=== PATIENT | male | born 1975 | race Caucasian/White ===

== ENCOUNTER 2018-11-24 12:11 | Inpatient (IN) | payer BC, OTHER ==
[~2018-11-24] VITALS: Ht 175.3 cm; Wt 68.0 kg
[2018-11-24 12:00] VITALS: BP 129/76
--- NOTE | 2018-11-24 12:00 | NUR ---
Pre-admission Pre-admissions assessment performed in the intake department of [facility]. Pt is A&O and ambulatory with a steady gait. He does not appear intoxicated and answers questions appropriately. Vital signs B/P 129/76, HR 77, RR 16, O2 sat 97%, T 98.1. He reports that he has been using Heroin 1 gram per day for 6 months. Last used 0.5 grams on 11/23 at 0600. He is experiencing moderate discomfort due to opiate withdrawal symptoms. Pt is stable and admission is to continue on the [facility]. Pre-admission Pre-admissions assessment performed in the intake department of [facility]. Pt is A&O and ambulatory with a steady gait. He does not appear intoxicated and answers questions appropriately. Vital signs B/P 129/76, HR 77, RR 16, O2 sat 97%, T 98.1. He reports that he has been using Heroin 1 gram per day for 3 months. Last used 0.5 grams on 11/23 at 0600. He is experiencing moderate discomfort due to opiate withdrawal symptoms. Pt is stable and admission is to continue on the [facility].
[2018-11-24] MEDS ORDERED: ONDANSETRON 4 MG/2 ML VIAL IM PRN (12:45)
[2018-11-24] MEDS ORDERED: 5 DAY TAPER BUPRENORPHINE -SERENITY PROTOCOL SL PRN (12:45)
[2018-11-24] MEDS ORDERED: diphenhydrAMINE 50 MG CAPSULE PO PRN (12:45)
[2018-11-24] MEDS ORDERED: MIRALAX 17 GM POWD.PACK PO PRN (12:45)
[2018-11-24] MEDS ORDERED: BUPRENORPHINE HCL 2 MG TAB.SUBL SL PRN (12:45)
[2018-11-24] MEDS ORDERED: MAG HYDROX/AL HYDROX/SIMETH 30 ML LIQUID UDC PO PRN (12:45)
[2018-11-24] MEDS ORDERED: IBUPROFEN 600 MG TABLET PO PRN (12:45)
[2018-11-24] MEDS ORDERED: LOPERAMIDE HCL 2 MG CAPSULE PO PRN ×2 (12:45)
[2018-11-24] MEDS ORDERED: MAGNESIUM HYDROXIDE 30 ML LIQUID UDC PO PRN (12:45)
[2018-11-24] MEDS ORDERED: DICYCLOMINE HCL 20 MG TABLET PO PRN (12:45)
[2018-11-24] MEDS: BUPRENORPHINE HCL 2 MG TAB.SUBL SL SCH ×3 (13:00→20:33)
[2018-11-24] MEDS: LORAZEPAM 0.5 MG TABLET PO PRN ×2 (13:23→20:33)
[2018-11-24] MEDS: ONDANSETRON ODT 4 MG TAB.RAPDIS SL PRN (13:23)
[2018-11-24] MEDS: MULTIVITAMINS,THERAPEUTIC TABLET PO SCH (13:23)
[2018-11-24 13:24] LABS: *URINE HCG, QUAL NEGATIVE
[2018-11-24] MEDS: METHOCARBAMOL 750 MG TABLET PO PRN (13:24)
--- NOTE | 2018-11-24 13:38 | NUR ---
PRN Subutex, Zofran, Robaxin, and Ativan Pt is having chills, hot and cold flashes, difficulty concentrating, body aches, anxiety, restlessness, nausea, and skin crawling. COWS 20. PRN Subutex, Zofran, Robaxin, and Ativan administered.
--- NOTE | 2018-11-24 13:45 | NUR ---
ADMISSION Pt is a 42 yo male admitted to [facility] at 1230 on 11/24/18 for medically supervised Opiate withdrawal. He is A&O and ambulatory with a steady gait. Body check performed by the STRAW HAT PLUNGER OPERATOR and the skin check performed by the nurse. He reports allergies to Sulfa and Levofloxican, he is full code status, and on a regular diet at home. Vital signs in intake are B/P 129/76, HR 77, RR 16, O2 sat 97%, T 98.1. He is 58 and weighs 150lb. Mild wheezing noted in all lung artis, respirations even and unlabored, brisk capillary refill, bowel sounds present, skin is moist and intact. He has a productive cough with clear/white thin sputum. He reports history of depression and anxiety. He denies any other medical history. Last BM was yesterday. He reports constipation when using heroin. Pt was in [facility] twice over the past 3 days for the treatment of a respiratory infection and he received IV abx. Pt brought in a Combivent inhaler which was prescribed to him by his primary care physician 1 week ago. Use History 1. Heroin 1 gram per day for the past 3 months. Last used 0.5grams on 11/23/18 at 0600. He began using heroin for the first time 6 months ago. He was up to 1.5 grams per day but tapered down to 1 gram per day for the past 3 months. Treatment History 1. [facility] in 1992 for 30 days. 2. [facility] 1992 for 30 days. Pt does have a h/o alcohol use disorder and opioid use. He explains that he had a wrestling injury in college and started using Vicodin. He then switched to Oxycodone. He states that this led to a 20 year history of opioid use. He used Suboxone to detox from Oxycodone. He found it difficult to manage some of the Suboxone withdrawal symptoms. He used Kratom for some time but stopped because he was unable to eat when taking it. 6 months ago a friend offered him a hit of heroin and he has been using ever since. He states that he has suffered trauma while growing up and that most likely contributed to his continued substance use. His Mother has a h/o ETOH abuse. The patient is a former smoker and currently uses an e-cigarette. His longest period of sobriety was 3 years at the age of 29. The patient lives at home with his girlfriend and dog. His family and girlfriend are supportive. He is currently experiencing s/s of Opiate withdrawal. He has anxiety, chills, hot and cold flashes, difficulty concentrating, body aches, nausea, skin crawling, and restlessness. Admission COWS score is 20. His primary care is Dr. Betancourt at [facility]. Dr. Barrett on the unit and aware of pts admission. Pt educated regarding plan of care and use of the call light. He verbalized understanding. Safety measures in place. Addendum: 11/25/18 at 0801 by IVANNA CASTELLANOS RN Pt reports that while being treated for the respiratory tract infection at [facility] on 11/23/18, he was administered Ativan 1mg.
[2018-11-24] MEDS ORDERED: IPRA4AER IH (15:05)
[2018-11-24 16:30] VITALS: BP 100/65
[2018-11-24 18:06] LABS: *AMPHETAMINE, URINE NEGATIVE (NEGATIVE); *BARBITURATE, URINE NEGATIVE (NEGATIVE); *CANNABINOID, URINE POSITIVE (NEGATIVE); *COCCAINE, URINE NEGATIVE (NEGATIVE); *OPIATE, URINE POSITIVE (NEGATIVE); *PHENCYCLIDINE SCREEN,URINE NEGATIVE (NEGATIVE)
--- NOTE | 2018-11-24 19:25 | NUR ---
END OF SHIFT Report provided to warehouse supervisor 3rd shift nurse. Pt is lying in bed resting. He is a 42 yo male admitted to [facility] today for opiate withdrawal. He is A&O and ambulatory. Allergic to sulfa and levofloxican, full code, regular diet. He started a 5 day Subutex taper today at 1700. One PRN Subutex administered on admission. He also received PRN Ativan, Robaxin, and Zofran. All were effective. Last COWS was 13. He drank 360mL and was able to eat 50% of dinner. Safety measures in place. Addendum: 11/24/18 at 1927 by IVANNA CASTELLANOS RN Pt was recently treated at [facility] for a respiratory tract infection.
--- NOTE | 2018-11-24 19:42 | NUR ---
START OF SHIFT NOTE Rcvd report from outgoing nurse. Pt is a 42 y/o male A/O to person, place, time, and purpose. Pt was admitted for medically supervised withdrawal from Opiates. Pt is on day 1 of a 5 day Subutex taper. Pt has been presenting w/ chills, sweats, body aches, nausea w/ no emesis, tremors, anxiety, depressed and withdrawn mood, and a blunt affect. Pt rcvd PRN Subutex, Robaxin, Ativan, and Zofran and were all noted effective by outgoing nurse. Last COWS 13 @ 1600. Call light is within reach. Pt will continue to be monitored and needs met.
[2018-11-24 20:00] VITALS: BP 117/75
--- NOTE | 2018-11-24 20:33 | NUR ---
PRN ATIVAN AND SEROQUEL ADMINISTRATION Ativan 2mg for s/s of withdrawal and Seroquel 100mg for sleep were given. Will reassess pt in 1 hr.
[2018-11-24 20:42] LABS: BASOPHILS % (AUTO) 0.4 % (0.0-2.0); HEMATOCRIT 35.8 % (36.7-47.1); HEMOGLOBIN 12.7 g/dL (12.5-16.3); LYMPHOCYTES # (AUTO) 0.4 K/uL (20.0-40.0); LYMPHOCYTES % (AUTO) 26.5 % (20.5-51.5); MEAN CORPUSCULAR HEMOGLOBIN 33.9 uug (23.8-33.4); MEAN CORPUSCULAR HGB CONC 36 g/dL (32.5-36.3); MEAN CORPUSCULAR VOLUME 95.2 fL (73.0-96.2); MONOCYTES # (AUTO) 0.1 K/uL (2.0-10.0); MONOCYTES % (AUTO) 4.2 % (0.0-11.0); NEUTROPHILS # (AUTO) 1.1 K/uL (1.8-8.9); NEUTROPHILS % (AUTO) 68.9 % (38.5-71.5); PLATELET COUNT (AUTO) 69 K/uL (152-348); RED BLOOD CELL COUNT(AUTO) 3.76 MIL/uL (4.06-5.63)
[2018-11-24 20:49] LABS: WHITE BLOOD COUNT (AUTO) 1.6 K/uL (3.6-10.2)
[2018-11-24 20:58] LABS: ALANINE AMINOTRANSFERASE 41 U/L (16-63); ALKALINE PHOSPHATASE 74 U/L (50-136); ASPARTATE AMINOTRANSFERASE 35 U/L (15-37); BILIRUBIN,TOTAL 0.5 mg/dL (0.2-1.0); CARBON DIOXIDE 29 mmol/L (21-32); CHLORIDE 97 mmol/L (98-107); GLUCOSE 128 mg/dL (74-106); MAGNESIUM 2.1 mg/dL (1.8-2.4); POTASSIUM 3.3 mmol/L (3.5-5.1); TOTAL PROTEIN, SERUM 7.4 g/dL (6.4-8.2); UREA NITROGEN, BLOOD 13 mg/dL (7-18)
[2018-11-24] MEDS ORDERED: QUETIAPINE FUMARATE 100 MG TABLET PO ONE (21:00)
[2018-11-24 21:06] LABS: BAND % (MANUAL) 16 % (0-10); LYMPHOCYTES % (MANUAL) 24 % (20-40); MONOCYTES % (MANUAL) 4 % (2-10); NEUTROPHILS % (MANUAL) 56 % (42-75)
[2018-11-24 21:07] LABS: THYROID STIMULATING HORMONE 0.466 mIU/mL (0.358-3.740)
[2018-11-24 21:09] LABS: ETHANOL < 3 MG/DL (0-0)
--- NOTE | 2018-11-24 21:33 | NUR ---
PRN ATIVAN AND SEROQUEL REASSESSMENT Pt is in bed w/ his eyes closed. Pt's respirations are unlabored and even.
--- NOTE | 2018-11-25 | NUR ---
COWS DEFERRED AND V/S REFUSED Pt is in bed w/ his eyes closed. Pt's respirations are unlabored and even.
[2018-11-25] MEDS ORDERED: LORAZEPAM 1 MG TABLET PO PRN (03:41)
[2018-11-25] MEDS: METHOCARBAMOL 750 MG TABLET PO PRN ×2 (03:48→16:00)
--- NOTE | 2018-11-25 03:48 | NUR ---
PRN ATIVAN, MOTRIN, AND ROBAXIN ADMINISTRATION Ativan 2mg for s/s of withdrawal (COWS 13), Motrin 600mg for headache, and Robaxin 750mg for muscles aches. Will reassess pt in 1 hr.
--- NOTE | 2018-11-25 07:08 | NUR ---
END OF SHIFT NOTE Endorsed pt to oncoming nurse. Pt is a 42 y/o male A/O to person, place, time, and purpose. Pt was admitted for medically supervised withdrawal from Opiates. Pt completed day 1 of a 5 day Subutex taper. Pt continued presenting w/ chills, sweats, body aches, nausea w/ no emesis, tremors, anxiety, depressed and withdrawn mood, and a blunt affect. Pt denies any S/I or H/I. PRN Ativan x2, Seroquel, Motrin, and Robaxin were given and all noted effective. Pts fluid intake was 1300ml and he slept for 10hrs. Last COWS 13 @ 0400. Call light is within reach.
[2018-11-25 08:00] VITALS: BP 95/65
[2018-11-25] MEDS: MULTIVITAMINS,THERAPEUTIC TABLET PO SCH (08:07)
[2018-11-25] MEDS: BUPRENORPHINE HCL 2 MG TAB.SUBL SL SCH ×3 (08:08→21:02)
--- NOTE | 2018-11-25 08:15 | NUR ---
START OF SHIFT: Received Pt A/O X 4 laying in bed. He reports sweats,fatigue,restlessness and generalized malaise. COWS 9. Subutex taper in progress to manage s/s of w/d. He also reports a cough and chest congestion. Respirations even and unlabored. He reports he would like to sleep after medication administration. Offered support. Encouraged increased fluids and rest today. PPD refused. Will continue to monitor and manage s/s of w/d.
[2018-11-25] MEDS ORDERED: TUBERCULIN,PURIF.PROT.DERIV. 5 TU/0.1 ML TEST ID ONE (09:00)
[2018-11-25 10:34] LABS: POTASSIUM 3.6 mmol/L (3.5-5.1)
[2018-11-25 10:42] LABS: HEMOGLOBIN 12.3 g/dL (12.5-16.3); LYMPHOCYTES # (AUTO) 0.7 K/uL (20.0-40.0); MEAN CORPUSCULAR VOLUME 92.8 fL (73.0-96.2); MONOCYTES # (AUTO) 0.1 K/uL (2.0-10.0); NEUTROPHILS # (AUTO) 1.1 K/uL (1.8-8.9)
[2018-11-25 10:43] LABS: BASOPHILS % (AUTO) 0.1 % (0.0-2.0); EOSINOPHILS % (AUTO) 0.4 % (0.0-7.0); HEMATOCRIT 34.7 % (36.7-47.1); LYMPHOCYTES % (AUTO) 36.9 % (20.5-51.5); MEAN CORPUSCULAR HEMOGLOBIN 32.7 uug (23.8-33.4); MEAN CORPUSCULAR HGB CONC 35 g/dL (32.5-36.3); MONOCYTES % (AUTO) 3.8 % (0.0-11.0); NEUTROPHILS % (AUTO) 58.8 % (38.5-71.5); PLATELET COUNT (AUTO) 65 K/uL (152-348); RED BLOOD CELL COUNT(AUTO) 3.74 MIL/uL (4.06-5.63)
[2018-11-25 10:52] LABS: WHITE BLOOD COUNT (AUTO) 1.9 K/uL (3.6-10.2)
--- NOTE | 2018-11-25 10:58 | NUR ---
Critical; lab reported from [facility]. WBC 1.9 MD made aware. No new orders at this time. CXR done and Pt tolerated well.
[2018-11-25 11:41] LABS: BAND % (MANUAL) 6 % (0-10); LYMPHOCYTES % (MANUAL) 34 % (20-40); MONOCYTES % (MANUAL) 2 % (2-10); NEUTROPHILS % (MANUAL) 58 % (42-75)
[2018-11-25 12:00] VITALS: BP 103/73
[2018-11-25] MEDS: NICOTINE POLACRILEX 4 MG GUM-PK OF TEN BC PRN (14:22)
--- NOTE | 2018-11-25 15:29 | NUR ---
Therapist prompted client to attend group therapy.
[2018-11-25 16:00] VITALS: BP 109/74
[2018-11-25] MEDS: ACETAMINOPHEN 325 MG TABLET PO PRN (16:00)
--- NOTE | 2018-11-25 16:00 | NUR ---
PRN Tylenol and PRN Robaxin given to manage back pain 5/10 and body aches.Will monitor effectiveness. Influenza specimen and sputum collected and sent to lab.
[2018-11-25] MEDS: AZITHROMYCIN 250 MG TABLET PO SCH (16:23)
--- NOTE | 2018-11-25 18:10 | NUR ---
PRN Tylenol and Robaxin effective. He reports aches lessened and pain now 2/10.
--- NOTE | 2018-11-25 18:41 | NUR ---
END OF SHIFT: Pt is on a Subutex taper to manage s/s of w/d which include body aches,anxiety,restlessness ,and sweats. Last COWS 9. He continues with a productive cough . CXR done. ID MD assessed Pt and new orders for Zithromax and Tamiflu. Sputum collected for culture and Influenza swab collected and both sent to lab. Blood cultures also ordered.Pulmonary MD also assessed Pt. He rested on and off most of day. He was compliant with increased fluids. Will pass shift report to oncoming night nurse.
--- NOTE | 2018-11-25 19:30 | NUR ---
START OF SHIFT Received 42 year old male patient admitted on 11/24/18 for Heroin withdrawal. Pt is alert and oriented x4. Pt noted with anxiety, complains of throbbing head and back pain. Pt started on a 5 day Subutex taper on 11/24/18 and tolerating well. Per endorsement, pt had CXR and resulted with slightly asymmetric patchy air space densities. Pt started on antibiotics. Sputum, blood and influenza culture obtained. Results pending. Pt received PRN Tylenol and Robaxin. Pts last CIWA:9 at 1600. Breathing even and unlabored, safety measures in place. Will continue to monitor.
[2018-11-25 20:00] VITALS: BP 104/63
[2018-11-25] MEDS: OSELTAMIVIR PHOSPHATE 75 MG CAPSULE PO SCH (21:02)
[2018-11-25] MEDS: COMBIVENT RESPIMAT INH PRN (21:26)
[2018-11-25] MEDS: ONDANSETRON ODT 4 MG TAB.RAPDIS SL PRN (21:26)
--- NOTE | 2018-11-25 21:26 | NUR ---
PRN ZOFRAN/INHALER Pt complains of nausea and shortness of breath. Pt requested to use his own inhaler. PRN Zofran SL and Pt's inhaler administered as ordered. Will monitor effectiveness.
[2018-11-25] MEDS ORDERED: QUETIAPINE FUMARATE 100 MG TABLET PO ONE (22:00)
--- NOTE | 2018-11-25 22:00 | NUR ---
PRN ZOFRAN/INHALER REASSESSMENT PRN medications effective. Pt reports decrease in nausea and shortness of breath. Will continue to monitor.
--- NOTE | 2018-11-25 22:06 | NUR ---
ONE TIME SEROQUEL Pt complains of difficulty falling asleep. PRN Benadryl offered, pt refused. One time Seroquel administered as ordered. Safety measures in place. Will monitor.
--- NOTE | 2018-11-25 23:06 | NUR ---
PRN SEROQUEL REASSESSMENT PRN medication effective. Pt lying in bed with eyes closed noted to be asleep. Will continue to monitor.
[2018-11-26 04:08] LABS: HEPATITIS B SURFACE AG Negative (Negative)
[2018-11-26 06:30] VITALS: BP 106/63
[2018-11-26] MEDS: ACETAMINOPHEN 325 MG TABLET PO PRN ×2 (06:31→14:31)
[2018-11-26] MEDS: CLONIDINE HCL 0.1 MG TABLET PO PRN (06:31)
[2018-11-26] MEDS: METHOCARBAMOL 750 MG TABLET PO PRN (06:31)
--- NOTE | 2018-11-26 06:31 | NUR ---
PRN ROBAXIN, CLONIDINE, TYLENOL Pt complains of body aches, headache 7/10, sweats and chills. PRN Robaxin, Clonidine and Tylenol administered as ordered. Safety measures in place. Will endorse to AM shift to reassess.
[2018-11-26] MEDS: IPRATROPIUM BROMIDE 0.5 MG/2.5 ML NEBU NEB PRN (07:17)
[2018-11-26] MEDS: ALBUTEROL SULFATE 2.5 MG/3 ML NEBU NEB PRN (07:17)
--- NOTE | 2018-11-26 07:21 | NUR ---
END OF SHIFT Pt is a 42 year old male patient admitted on 11/24/18 for Heroin withdrawal. He remains alert and oriented x4. He was noted with anxiety, and had complaints of poor appetite, headache, back pain, cough and shortness of breath during the shift. He continues on a 5 day Subutex taper and tolerating well. He received a one time order of Seroquel, PRN Zofran and inhaler. At 0630 pt complained of chills, sweats, body aches, shortness of breath and headache. PRN Robaxin, Clonidine, Tylenol and Breathing treatment administered. Endorsed to AM shift to reassess. He slept a total of 7hrs, Intake: 1000mL Void:x1, BM:0 COWS: 9 at 1999. Breathing even and unlabored, safety measures in place. Endorsed to AM shift.
[2018-11-26 07:46] LABS: BASOPHILS % (AUTO) 0.5 % (0.0-2.0); LYMPHOCYTES % (AUTO) 48.6 % (20.5-51.5); MEAN CORPUSCULAR HEMOGLOBIN 33.1 uug (23.8-33.4); MEAN CORPUSCULAR HGB CONC 35 g/dL (32.5-36.3); MEAN CORPUSCULAR VOLUME 93.5 fL (73.0-96.2); MONOCYTES # (AUTO) 0.1 K/uL (2.0-10.0); MONOCYTES % (AUTO) 2.8 % (0.0-11.0); NEUTROPHILS % (AUTO) 47.1 % (38.5-71.5); PLATELET COUNT (AUTO) 71 K/uL (152-348); RED BLOOD CELL COUNT(AUTO) 3.63 MIL/uL (4.06-5.63); WHITE BLOOD COUNT (AUTO) 2.1 K/uL (3.6-10.2)
[2018-11-26 08:00] VITALS: BP 102/60
--- NOTE | 2018-11-26 08:05 | NUR ---
START OF SHIFT: Received Pt A/O X 4 laying in bed. He reports sweats,restlessness,anxiety and fatigue. He continues with SOB on exertion and productive cough. O2 sat 89% this morning. Nebulizer treatment performed by RT this morning and he tolerated well. ABT therapy in progress per . COWS 9. Subutex taper in progress to manage s/s of w/d. Respirations even and unlabored. Encouraged him to get out of bed to promote respiratory health. Offered support. Encouraged increased fluids.Will continue to monitor and manage s/s of w/d.
[2018-11-26] MEDS: MULTIVITAMINS,THERAPEUTIC TABLET PO SCH (08:20)
[2018-11-26] MEDS: OSELTAMIVIR PHOSPHATE 75 MG CAPSULE PO SCH ×2 (08:20→20:10)
[2018-11-26] MEDS ORDERED: BUPRENORPHINE HCL 2 MG TAB.SUBL SL SCH (09:00)
[2018-11-26 09:57] LABS: BAND % (MANUAL) 2 % (0-10); LYMPHOCYTES % (MANUAL) 46 % (20-40); MONOCYTES % (MANUAL) 4 % (2-10); NEUTROPHILS % (MANUAL) 47 % (42-75); REACTIVE LYMPHOCYTES 1 % (0-0)
--- NOTE | 2018-11-26 10:14 | NUR ---
Therapist prompted client to attend group therapy.
[2018-11-26 12:00] VITALS: BP 103/65
[2018-11-26] MEDS: NICOTINE POLACRILEX 4 MG GUM-PK OF TEN BC PRN ×2 (12:08→16:47)
[2018-11-26] MEDS: BUPRENORPHINE HCL 2 MG TAB.SUBL SL SCH ×2 (14:31→20:10)
[2018-11-26] MEDS: AZITHROMYCIN 250 MG TABLET PO SCH (14:31)
--- NOTE | 2018-11-26 14:35 | NUR ---
Pt reports back pain 5/10. PRN Tylenol given to manage pain. Will monitor effectiveness.
--- NOTE | 2018-11-26 15:35 | NUR ---
Pt states the Tylenol was effective aeb pain 12/21
[2018-11-26 16:00] VITALS: BP 112/81
--- NOTE | 2018-11-26 18:28 | NUR ---
END OF SHIFT: Pt is on a Subutex taper to manage s/s of w/d which include body aches,anxiety and restlessness. Last COWS 9. He continues with a productive cough . ID DRUM DRIER OPERATOR assessed Pt and ordered a respiratory viral panel. Will endorse to table games shift manager nurse to collect sputum. Pulmonary MD also assessed Pt.and ordered a BNP. He attended some groups and took a shower. PRN Tylenol given for back pain 5/10 on scale. He was compliant with increased fluids. Will pass shift report to oncoming night nurse
--- NOTE | 2018-11-26 19:00 | NUR ---
Start of Shift Received 42 year old male patient admitted to [facility] for medically supervised withdrawal from Opiates. Pt currently on day 3 of a 5 day Subutex taper, which he is tolerating well. Pt received PRN Tylenol day shift. Last COWS 9 @1600. Pt in bed, awake, alert, and oriented. Pt is anxious, agitated, mild tremors, and c/o feeling hot, chills, and general aches. Pt continues to have a productive cough. Pt is aware that a specimen needs to be collected and sent to lab, will call. Bed low, side rails up x 2, and call vital in reach. Will continue to monitor.
[2018-11-26 20:00] VITALS: BP 121/92
--- NOTE | 2018-11-26 20:00 | NUR ---
COWS 15 Sputum sent to lab Pt is anxious, agitated, increased tremors, and c/o feeling hot, chills, and general aches.
[2018-11-26] MEDS ORDERED: QUETIAPINE FUMARATE 100 MG TABLET PO ONE (21:15)
[2018-11-26] MEDS: ONDANSETRON ODT 4 MG TAB.RAPDIS SL PRN (22:36)
--- NOTE | 2018-11-26 22:36 | NUR ---
PRN Zofran//Baclofen/Seroquel 1 x order Pt c/o nausea, and general aches/pain /10, and requested Seroquel for sleep. Medications given per order. Will monitor effect.
[2018-11-26] MEDS: BACLOFEN 20 MG TABLET PO PRN (22:37)
--- NOTE | 2018-11-26 23:36 | NUR ---
Reassess PRN Zofran/Baclofen/Seroquel Pt in bed resting with eyes closed. Respirations are even and unlabored. Bed low, side rails up x 2, and call vital in reach. Will continue to monitor.
--- NOTE | 2018-11-27 | NUR ---
COWS deferred/ Vitals refused. Pt resting with eyes closed. Respirations are even and unlabored. Bed low, side rails up x 2, and call vital in reach. Will continue to monitor.
--- NOTE | 2018-11-27 06:40 | NUR ---
End of Shift Endorsing 42 year old male patient admitted to [facility] for medically supervised withdrawal from Opiates. Pt currently on day 4 of a 5 day Subutex taper, which he is tolerating well. Pt received PRN Zofran, Baclofen, and Seroquel on retail shift supervisor. Last COWS 15 @1999. Pt in bed resting with eyes closed. Respirations are even and unlabored. Bed low, side rails up x 2, and call vital in reach. PO intake 1500 ml, voided x 3 BM x 0, and slept 8 hours.
--- NOTE | 2018-11-27 07:30 | NUR ---
START OF SHIFT Pt 42 y/o male admitted for opiate withdrawal. Pt received in room awake watching television. Pt alert and oriented to name, place, and time. Perrla. Skin warm and moist to touch. Respirations even and unlabored. Appears disheveled. Clothes and empty drink bottles scattered throughout the room. Encouraged to maintain hygiene. Anxious and restless. Fidgety. Irritable. Pressured speech. Bilateral hand tremors noted. Complaints of generalized discomfort. It was reported that pt slept for 8 hours last night. Pt is on a 5 day subutex tapers and is on day 4. Bed on lowest position with side rails x2 up for safety. Call light within reach.
[2018-11-27] MEDS: COMBIVENT RESPIMAT INH PRN (07:59)
[2018-11-27 08:00] VITALS: BP 119/76
[2018-11-27] MEDS: OSELTAMIVIR PHOSPHATE 75 MG CAPSULE PO SCH ×2 (08:26→20:43)
[2018-11-27] MEDS: BUPRENORPHINE HCL 2 MG TAB.SUBL SL SCH ×3 (08:26→20:41)
[2018-11-27] MEDS: MULTIVITAMINS,THERAPEUTIC TABLET PO SCH (08:26)
[2018-11-27] MEDS: NICOTINE POLACRILEX 4 MG GUM-PK OF TEN BC PRN ×2 (08:41→22:31)
[2018-11-27 09:00] LABS: POTASSIUM 3.6 mmol/L (3.5-5.1)
[2018-11-27 09:04] LABS: BASOPHILS % (AUTO) 0.7 % (0.0-2.0); EOSINOPHILS % (AUTO) 1.9 % (0.0-7.0); HEMATOCRIT 34.2 % (36.7-47.1); HEMOGLOBIN 12.3 g/dL (12.5-16.3); LYMPHOCYTES # (AUTO) 1.1 K/uL (20.0-40.0); LYMPHOCYTES % (AUTO) 48.4 % (20.5-51.5); MEAN CORPUSCULAR HEMOGLOBIN 33.2 uug (23.8-33.4); MEAN CORPUSCULAR HGB CONC 36 g/dL (32.5-36.3); MEAN CORPUSCULAR VOLUME 92.4 fL (73.0-96.2); MONOCYTES # (AUTO) 0.1 K/uL (2.0-10.0); MONOCYTES % (AUTO) 2.2 % (0.0-11.0); NEUTROPHILS # (AUTO) 1.1 K/uL (1.8-8.9); NEUTROPHILS % (AUTO) 46.8 % (38.5-71.5); PLATELET COUNT (AUTO) 84 K/uL (152-348); WHITE BLOOD COUNT (AUTO) 2.3 K/uL (3.6-10.2)
[2018-11-27 09:50] LABS: LYMPHOCYTES % (MANUAL) 49 % (20-40); MONOCYTES % (MANUAL) 1 % (2-10); NEUTROPHILS % (MANUAL) 50 % (42-75)
[2018-11-27 10:08] LABS: CRYPTOCOCCUS AB, SERUM Negative (Negative)
[2018-11-27] MEDS ORDERED: methylPREDNISolone SOD SUCC 125 MG/2 ML VIAL IV SCH (10:45)
[2018-11-27] MEDS: ALBUTEROL SULFATE 2.5 MG/3 ML NEBU NEB SCH ×3 (11:30→19:02)
[2018-11-27] MEDS: IPRATROPIUM BROMIDE 0.5 MG/2.5 ML NEBU NEB SCH ×3 (11:30→19:02)
[2018-11-27 12:00] VITALS: BP 120/76
--- NOTE | 2018-11-27 12:45 | NUR ---
IV Access: IV access obtained to patient's right forearm. Patient was informed prior to procedure and verbalized good understanding. Utilized 23G to patient's right forearm via aseptic technique with x 1 attempt. Good blood return noted. Patient tolerated procedure well. Flushed adequately per unit protocol. Tourniquet released. Will continue to monitor.
[2018-11-27] MEDS: IPRATROPIUM BROMIDE 0.5 MG/2.5 ML NEBU NEB PRN (12:49)
[2018-11-27] MEDS: ALBUTEROL SULFATE 2.5 MG/3 ML NEBU NEB PRN (12:50)
[2018-11-27] MEDS: methylPREDNISolone SOD SUCC 125 MG/2 ML VIAL IV SCH ×2 (13:43→22:00)
[2018-11-27] MEDS: AZITHROMYCIN 250 MG TABLET PO SCH (14:02)
[2018-11-27 16:00] VITALS: BP 118/74
[2018-11-27] MEDS: ONDANSETRON ODT 4 MG TAB.RAPDIS SL PRN (16:42)
--- NOTE | 2018-11-27 16:42 | NUR ---
Zofran 4 mg SL/Mylanta 30 cc PO given: Patient complains of upset stomach and nausea. Able to tolerate oral intake. Medicated patient with Zofran 4 mg and Mylanta 30 cc PO given as ordered. Will monitor for effectiveness.
--- NOTE | 2018-11-27 17:42 | NUR ---
PRN HAIR AUGUSTE EVAL Pt states medication effective. Pt denies any nausea.
--- NOTE | 2018-11-27 19:35 | NUR ---
START OF SHIFT Received patient awake, alert, and oriented x4 sitting up in bed watching TV. Patient is a 42 year old male admitted for medically supervised detox from opiates with secondary diagnoses of anxiety, depression, and a respiratory tract infection. Per endorsement, patient is on the 4th day of his 5 day Subutex taper and was given PRN meds Maalox and Zofran. He requires supplemental O2 on occasion for SOB and difficulty keeping his SpO2 up. Patient is receiving breathing treatments and is receiving IV push Solumedrol. Upon assessment, patient stated he was experiencing lower back pain at a 5 out of 10, tremors, and diaphoresis. He also reported that he was coughing and it was causing him nausea or gagging. Patient requests pain medication with his night time medications. Last COWS score is 12. HOB and bilateral side rails raised. All safety measures in place. Call light is functional and within reach. Will continue to monitor.
--- NOTE | 2018-11-27 19:38 | NUR ---
END OF SHIFT Pt 42 y/o male admitted for opiate withdrawal. Pt alert and oriented to name, place, and time. Perrla. Skin warm and moist to touch. Respirations even and unlabored. Appears disheveled. Clothes and empty drink bottles scattered throughout the room. Encouraged to maintain hygiene. Anxious and restless. Bilateral hand tremors noted. Pressured speech. Irritable. Intermittent perspiration. Generalized body aches. Attended group activity today. Last cows=12@1600. Pt is on a 5 day Subutex taper and is on day 4. Bed on lowest position with side rails x2 up for safety. Call light within reach.
[2018-11-27 20:00] VITALS: BP 151/73
[2018-11-27] MEDS: QUETIAPINE FUMARATE 25 MG TABLET PO SCH (20:40)
[2018-11-27] MEDS: QUETIAPINE FUMARATE 100 MG TABLET PO SCH (20:41)
[2018-11-27] MEDS: ACETAMINOPHEN 325 MG TABLET PO PRN (20:42)
--- NOTE | 2018-11-27 20:42 | NUR ---
PRN TYLENOL ADMINISTRATION Patient reports a 5 out of 10 dull aching pain to his lower back. PRN Tylenol 650 mg given PO per MD orders and patient request. Will continue to monitor and reassess for effectiveness.
[2018-11-27] MEDS ORDERED: QUETIAPINE FUMARATE 100 MG TABLET PO SCH (21:00)
--- NOTE | 2018-11-27 21:42 | NUR ---
PRN TYLENOL REASSESSMENT Patient reports not having sufficient relief from lower back pain and pain is still at a 5 out of 10. Will continue to monitor.
--- NOTE | 2018-11-27 22:31 | NUR ---
PRN NICOTINE GUM GIVEN Patient reported having cravings and requested a PRN. Nicotine gum 4 mg given per MD orders. Will continue to monitor and reassess.
[2018-11-27] MEDS: BACLOFEN 20 MG TABLET PO PRN (23:03)
--- NOTE | 2018-11-27 23:03 | NUR ---
PRN BACLOFEN ADMINISTRATION Patient reported having muscle spasms to lower back. PRN Baclofen 20 mg given per MD orders. Will continue to monitor and reassess for effectiveness.
--- NOTE | 2018-11-27 23:31 | NUR ---
PRN NICOTINE GUM REASSESSMENT Patient reports having relief from cravings. PRN Nicotine noted to be effective. Will continue to monitor.
--- NOTE | 2018-11-28 | NUR ---
VITAL SIGNS REFUSED Patient is noted lying in bed with eyes closed and even, unlabored respirations. Vital signs refused at this time. HOB flat and bilateral side rails raised for safety. Call light is functional and within reach. Will continue to monitor.
--- NOTE | 2018-11-28 00:03 | NUR ---
PRN BACLOFEN REASSESSMENT Patient is noted lying in bed with eyes closed and respirations even and unlabored. No reports of negative symptoms or pain reported. PRN Baclofen noted to be effective. Will continue to monitor.
[2018-11-28] MEDS: CLONIDINE HCL 0.1 MG TABLET PO PRN ×3 (03:22→22:00)
--- NOTE | 2018-11-28 03:22 | NUR ---
PRN CLONIDINE ADMINISTRATION Patient reported symptoms of moderate to severe anxiety, tremors and diaphoresis. Clonidine 0.1 mg administered per MD orders. Will continue to monitor and reassess for effectiveness.
--- NOTE | 2018-11-28 04:22 | NUR ---
PRN CLONIDINE REASSESSMENT Patient reports moderate, but not complete relief from symptoms of anxiety, tremors, and diaphoresis. PRN Clonidine noted to be effective. Will continue to monitor.
[2018-11-28] MEDS: methylPREDNISolone SOD SUCC 125 MG/2 ML VIAL IV SCH (06:18)
--- NOTE | 2018-11-28 07:30 | NUR ---
START OF SHIFT Pt 42 y/o male admitted for opiate withdrawal. Pt received in room awake watching in room. Peripheral IV on left forearm 22g saline locked in place and patent with no redness noted. Pt alert and oriented to name, place, and time. Perrla. Skin warm and moist to touch. Respirations even and unlabored. Appears disheveled. Hair uncombed. Clothes scattered throughout the room. Encouraged to maintain hygiene. Anxious and restless. Pressured speech. Intermittent perspiration with perspiration noted on forehead. Bilateral hand tremors noted. Complaints of generalized discomfort. It was reported that pt slept for 5 hours last night. Pt is on a 5 day subutex taper and is on day 5. Bed on lowest position with side rails x2 up for safety. Call light within reach.
--- NOTE | 2018-11-28 07:33 | NUR ---
END OF SHIFT Patient is a 42 year old male admitted for medically supervised detox from opiates with secondary diagnoses of anxiety, depression, and a respiratory tract infection. During the shift, the patient was noted with anxiety, tremors, diaphoresis, cravings for cigarettes, agitation, and lower back pain and spasms. PRN medications Tylenol, nicotine gum, baclofen, and Clonidine were given per MD orders. Patient stated he has been sweating more than usual during his sleep and required a complete linen and clothing change. Patient required a change of IV site due to burning and pain upon flushing NS during scheduled medication administration. New IV site is now in his left forearm. Last COWS score is 11. Patient slept for about 4.5 hours during the night. HOB flat and bilateral side rails raised. Call light is functional and within reach. All safety measures in place. Seizure and fall precautions maintained. Endorsed to oncoming AM nurse.
[2018-11-28] MEDS: ALBUTEROL SULFATE 2.5 MG/3 ML NEBU NEB SCH ×4 (07:35→19:38)
[2018-11-28] MEDS: IPRATROPIUM BROMIDE 0.5 MG/2.5 ML NEBU NEB SCH ×4 (07:35→19:38)
[2018-11-28 08:00] VITALS: BP 115/74
[2018-11-28 08:02] LABS: BASOPHILS % (AUTO) 0.3 % (0.0-2.0); EOSINOPHILS % (AUTO) 0.1 % (0.0-7.0); HEMATOCRIT 34.4 % (36.7-47.1); HEMOGLOBIN 12.4 g/dL (12.5-16.3); LYMPHOCYTES # (AUTO) 0.6 K/uL (20.0-40.0); LYMPHOCYTES % (AUTO) 26.8 % (20.5-51.5); MEAN CORPUSCULAR HEMOGLOBIN 33.4 uug (23.8-33.4); MEAN CORPUSCULAR HGB CONC 36 g/dL (32.5-36.3); MEAN CORPUSCULAR VOLUME 92.5 fL (73.0-96.2); MONOCYTES # (AUTO) 0.1 K/uL (2.0-10.0); MONOCYTES % (AUTO) 4.3 % (0.0-11.0); NEUTROPHILS # (AUTO) 1.4 K/uL (1.8-8.9); NEUTROPHILS % (AUTO) 68.5 % (38.5-71.5); PLATELET COUNT (AUTO) 106 K/uL (152-348); RED BLOOD CELL COUNT(AUTO) 3.72 MIL/uL (4.06-5.63); WHITE BLOOD COUNT (AUTO) 2.1 K/uL (3.6-10.2)
[2018-11-28 08:16] LABS: CREATININE 0.9 mg/dL (0.6-1.3); POTASSIUM 4.9 mmol/L (3.5-5.1)
[2018-11-28] MEDS: OSELTAMIVIR PHOSPHATE 75 MG CAPSULE PO SCH ×2 (08:17→21:59)
[2018-11-28] MEDS: BACLOFEN 20 MG TABLET PO PRN ×3 (08:17→21:54)
[2018-11-28] MEDS: MULTIVITAMINS,THERAPEUTIC TABLET PO SCH (08:17)
[2018-11-28] MEDS: NICOTINE POLACRILEX 4 MG GUM-PK OF TEN BC PRN ×2 (08:18→20:17)
--- NOTE | 2018-11-28 08:28 | NUR ---
PRN BACLOFEN NICOTINE Nicotine gum given for complaints of smoking craving. Complaints of generalized body aches 04/20. Baclofen po prn per MD order given.
[2018-11-28] MEDS ORDERED: BUPRENORPHINE HCL 2 MG TAB.SUBL SL SCH (09:00)
[2018-11-28 09:19] LABS: LYMPHOCYTES % (MANUAL) 35 % (20-40); MONOCYTES % (MANUAL) 1 % (2-10); NEUTROPHILS % (MANUAL) 64 % (42-75)
--- NOTE | 2018-11-28 09:28 | NUR ---
PRN BACLOFEN NICOTINE EVAL Pt states body aches are 4/10.
[2018-11-28] MEDS: ACETAMINOPHEN 325 MG TABLET PO PRN ×2 (09:56→20:46)
--- NOTE | 2018-11-28 09:58 | NUR ---
PRN TYLENOL Complaints of headache 03/20. Tylenol po prn per MD order given.
--- NOTE | 2018-11-28 10:58 | NUR ---
JAMES PHELPS Pt states headache 01/18. Addendum: 11/28/18 at 1750 by REINA BOWMAN RN correct title JAMES LIRA
[2018-11-28 12:00] VITALS: BP 115/71
[2018-11-28] MEDS ORDERED: BACL20TA PO (13:20)
[2018-11-28] MEDS ORDERED: CLON0.1T14 PO (13:20)
[2018-11-28] MEDS ORDERED: QUET100T PO (13:20)
[2018-11-28] MEDS ORDERED: FLUT12AE3 IH (14:09)
[2018-11-28] MEDS ORDERED: PRED20TA PO (14:10)
[2018-11-28] MEDS ORDERED: HYDR-3895 PO (14:11)
[2018-11-28] MEDS: AZITHROMYCIN 250 MG TABLET PO SCH (14:28)
--- NOTE | 2018-11-28 14:32 | NUR ---
Therapist prompted client to attend group therapy.
[2018-11-28] MEDS: HYDROXYZINE PAMOATE 25 MG CAPSULE PO PRN ×2 (14:37→21:59)
--- NOTE | 2018-11-28 14:43 | NUR ---
PRN CATAPRES VISTARIL BACLOFEN Complaints of generalized body aches 04/20. Complaints of anxiety and irritability. Catapres po prn per MD order given. Vistaril po prn per MD order given. Baclofen po prn per MD order given.
--- NOTE | 2018-11-28 15:43 | NUR ---
PRN CATAPRES VISTARIL BACLOFEN EVAL Pt states body aches 3/10. Pt states medications effective.
[2018-11-28 16:00] VITALS: BP 133/75
--- NOTE | 2018-11-28 16:20 | NUR ---
RT prompted pt to attend groups. Pt's improved group attendance was positively reinforced.
--- NOTE | 2018-11-28 19:00 | NUR ---
Start of Shift Received 42 year old male patient admitted to [facility] for medically supervised withdrawal from Opiates. Pt completed a 5 day Subutex taper, which he is tolerated well. Pt received PRN Zofran, Baclofen x 2, Nicotine gum, Clonidine, Vistaril, Tylenol, and Maalox on day shift. Last COWS 8 @1600. Pt is awake in bed watching TV. Pt is anxious, agitated, isolative, and withdrawn. Encouraged to go to group, declined. Respirations are even and unlabored. Continues to have a productive cough of clear thin sputum. Pt on ATB, respiratory treatments, and IV Solumedrol. Pt has patent 22g to Left forearm which is clean and dry. Bed low, side rails up x 2, and call vital in reach. Continue to monitor.
--- NOTE | 2018-11-28 19:13 | NUR ---
END OF SHIFT Pt 42 y/o male admitted for opiate withdrawal. Pt alert and oriented to name, place, and time. [place]. Skin warm and moist to touch. Respirations even and unlabored. Appears disheveled. Empty drink bottles scattered throughout the room. Encouraged to maintain hygiene. Anxious and restless. Pressured speech. Bilateral hand tremors noted. Cows=8 @1600. Pt attended group activity. Pt is on a 5 day subutex taper and is on day 5. Bed on lowest position with side rails x2 up for safety. Call light within reach.
[2018-11-28 20:00] VITALS: BP 123/69
[2018-11-28 20:06] LABS: COCCIDIOIDES CF SERUM Negative (Neg:<1:2)
[2018-11-28] MEDS: methylPREDNISolone SOD SUCC 40 MG/ML VIAL IV SCH (20:17)
--- NOTE | 2018-11-28 20:17 | NUR ---
PRN Nicotine gum Pt asked for nicotine gum. Given per order. Will monitor.
--- NOTE | 2018-11-28 20:46 | NUR ---
PRN Tylenol/ Reassess Nicotine Gum Pt asked for Tylenol for back pain 5/10. Given per order. Will monitor effect. Gum effective.
[2018-11-28] MEDS ORDERED: methylPREDNISolone SOD SUCC 125 MG/2 ML VIAL IV SCH (21:00)
--- NOTE | 2018-11-28 21:46 | NUR ---
Reassess PRN Tylenol Medication moderately effective. Pt took hot shower and pain 2/10.
[2018-11-28] MEDS: QUETIAPINE FUMARATE 100 MG TABLET PO SCH (21:54)
[2018-11-28] MEDS: QUETIAPINE FUMARATE 25 MG TABLET PO SCH (21:54)
--- NOTE | 2018-11-28 21:54 | NUR ---
PRN Baclofen Pt c/o muscle cramps and pain. Medicated per order. Will monitor effect.
--- NOTE | 2018-11-28 22:00 | NUR ---
PRN Clonidine/Vistaril Pt anxious, agitated, clammy, restless and noted tremors. Medicated per order. Will monitor effect.
--- NOTE | 2018-11-28 22:54 | NUR ---
Reassess PRN Baclofen Medication effective. Pt resting with eyes closed. Respirations even and unlabored. Continue to monitor.
--- NOTE | 2018-11-28 23:00 | NUR ---
Reassess PRN Clonidine/Vistaril Medication effective. Pt resting with eyes closed. Respirations are even and unlabored. Bed low, side rails up x 2, call vital in reach. Continue to monitor.
--- NOTE | 2018-11-29 | NUR ---
COWS deferred/Vitals refused Pt resting with eyes closed. Respirations are even and unlabored. Bed low, side rails up x2, and call vital in reach. Will continue to monitor.
--- NOTE | 2018-11-29 06:37 | NUR ---
End of Shift Endorsing 42 year old male patient admitted to [facility] for medically supervised withdrawal from Opiates. Pt completed a 5 day Subutex taper, which he is tolerated well. Pt received PRN Nicotine gum, Tylenol, Baclofen, Clonidine, and Vistaril on warehouse shift supervisor. Last COWS 7 @1999. Pt has patent 22g to Left forearm which is clean and dry. Pt in bed resting with eyes closed. Respirations are even and unlabored. Bed low, side rails up x 2, and call vital in reach. PO intake 2255 ml, voided x 4 BM x 1, and slept 8 hours.
--- NOTE | 2018-11-29 07:30 | NUR ---
Start of Shift Notes: Report received from merchandise presentation associate nurse. Pt is a 42M, admitted for Opiate dependence. Pt was in bed upon start of shift. Pt is AOx4 without s/s of acute distress. Pt noted with allergy to Sulfa. Last COWS Pt has completed Subutex taper and is scheduled for discharge today to [facility]. Bed in lowest position. Side rails up x2. Call light functioning and within reach. All needs attended and met. Will continue to monitor.
[2018-11-29 08:00] VITALS: BP 117/63
--- NOTE | 2018-11-29 08:00 | NUR ---
COWS 4 Pt mildly anxious regarding his discharge. Slight tremor and slight restlessness noted. COWS 4
[2018-11-29] MEDS: ALBUTEROL SULFATE 2.5 MG/3 ML NEBU NEB SCH (08:25)
[2018-11-29] MEDS: IPRATROPIUM BROMIDE 0.5 MG/2.5 ML NEBU NEB SCH (08:25)
[2018-11-29 08:26] LABS: BASOPHILS # (AUTO) 0.1 K/uL (0.0-8.0); BASOPHILS % (AUTO) 1.8 % (0.0-2.0); EOSINOPHILS % (AUTO) 0.1 % (0.0-7.0); HEMATOCRIT 34.7 % (36.7-47.1); HEMOGLOBIN 12.2 g/dL (12.5-16.3); LYMPHOCYTES # (AUTO) 0.9 K/uL (20.0-40.0); LYMPHOCYTES % (AUTO) 24.1 % (20.5-51.5); MEAN CORPUSCULAR HEMOGLOBIN 33.4 uug (23.8-33.4); MEAN CORPUSCULAR HGB CONC 35 g/dL (32.5-36.3); MEAN CORPUSCULAR VOLUME 95.4 fL (73.0-96.2); MONOCYTES # (AUTO) 0.1 K/uL (2.0-10.0); NEUTROPHILS # (AUTO) 2.8 K/uL (1.8-8.9); PLATELET COUNT (AUTO) 129 K/uL (152-348); RED BLOOD CELL COUNT(AUTO) 3.64 MIL/uL (4.06-5.63); WHITE BLOOD COUNT (AUTO) 3.8 K/uL (3.6-10.2)
[2018-11-29 08:34] LABS: CREATININE 0.9 mg/dL (0.6-1.3); POTASSIUM 4.8 mmol/L (3.5-5.1)
[2018-11-29] MEDS: MULTIVITAMINS,THERAPEUTIC TABLET PO SCH (08:57)
[2018-11-29] MEDS: methylPREDNISolone SOD SUCC 40 MG/ML VIAL IV SCH (08:57)
[2018-11-29] MEDS: OSELTAMIVIR PHOSPHATE 75 MG CAPSULE PO SCH (08:58)
[2018-11-29] MEDS: NICOTINE POLACRILEX 4 MG GUM-PK OF TEN BC PRN (09:39)
--- NOTE | 2018-11-29 09:39 | NUR ---
Nicotine Gum PRN: Pt requested for nicotine gum before discharging. Nicotine gum PRN given as ordered.
--- NOTE | 2018-11-29 09:51 | NUR ---
Discharge Note: Pt discharged to [facility] in stable condition. Pt belongings and valuables returned. Discharge education and teaching regarding inhaler medications initiated. Pt verbalized understanding. Pt left the unit at 0951.
== END 2018-11-29 09:51 | disposition other institution (70) | DRG 895 ==
LOC: SRC 12:11
PROVIDERS: ADMIT Family Medicine Addiction Medicine; ATTEND Family Medicine Addiction Medicine
PROC: HZ2ZZZZ Detoxification Services for Substance Abuse Treatment (ICD-10-PCS; principal; 2018-11-24)
PROC: HZ31ZZZ Individual Counseling for Substance Abuse Treatment, Behavioral (ICD-10-PCS; 2018-11-26)
PROC: HZ41ZZZ Group Counseling for Substance Abuse Treatment, Behavioral (ICD-10-PCS; 2018-11-26)
DX: F11.23 Opioid dependence with withdrawal (principal); J12.9 Viral pneumonia, unspecified; J68.1 Pulmonary edema due to chemicals, gases, fumes and vapors; D61.818 Other pancytopenia; J98.11 Atelectasis; Z88.1 Allergy status to other antibiotic agents; Z88.2 Allergy status to sulfonamides; G89.4 Chronic pain syndrome; M51.26 Other intervertebral disc displacement, lumbar region; J45.909 Unspecified asthma, uncomplicated; F17.290 Nicotine dependence, other tobacco product, uncomplicated; F32.9 Major depressive disorder, single episode, unspecified; R73.03 Prediabetes
CPT/HCPCS: 36415; 70030-TC; 71045; 80307; 80346; 80349; 80361; 82785; 83735; 84443; 84703; 85025; 86592; 86705; 86803; 87040; 87070; 87328; 87340; 87400; 87536; 87806; 94640; 94664; G0480; J2920; J2930; J3590; Q0144; Q0162; Q0163